=== PATIENT | male | born 1955 | race Hispanic/Latino ===

== ENCOUNTER 2020-01-02 07:38 | Outpatient (CLI) | payer BC ==
--- NOTE | 2020-01-02 09:33 | MRI ---
MRI LEFT KNEE PERFORMED WITHOUT CONTRAST ENHANCEMENT: History: Knee injury Comparison: Plain film examination done at Dr. hernandez, 12-26-2019. FINDINGS: The anterior cruciate ligament is intact. There is increased signal change associated with the femora l attachment of the PCL compatible with a partial interstitial tear. There is a small free edge tear involving the posterior horn of the medial meniscus. There is a compl ex tear involving the posterior horn of the lateral meniscus. The tear extends from just adjacent to the meniscal root into the midportion of the body of the meniscus. Free edge is truncated and irregul ar. Medial as well as lateral collateral ligaments and iliotibial band regions are unremarkable. There is moderate articular cartilage loss of the lateral facet of the patella. Medial and lateral pa tellar retinaculum and quadriceps and patellar tendons are normal. There are large osteochondral bodies and a Harley cyst. This is confirmed on plain film which shows os sification. IMPRESSION: 1. Midgrade partial tear of the proximal femoral attachment of the PCL. ACL is intact. 2. Small free edge tear involving the posterior horn of the medial meniscus. 3. Complex tear involving the posterior horn of the lateral meniscus. 4. Marked arthritic changes of the patellofemoral joint space with marked chondromalacia change in th e lateral facet. There are large osteochondral bodies within a Harley's cyst incidentally noted. POS: BRENDA
== END 2020-01-02 07:39 | disposition home or self-care (01) ==
LOC: BICMRI 07:38
PROVIDERS: ATTEND Orthopaedic Surgery
DX: M25.562 Pain in left knee (principal); M17.0 Bilateral primary osteoarthritis of knee; S83.522A Sprain of posterior cruciate ligament of left knee, initial encounter; S83.242A Other tear of medial meniscus, current injury, left knee, initial encounter; S83.272A Complex tear of lateral meniscus, current injury, left knee, initial encounter; M71.22 Synovial cyst of popliteal space [Baker], left knee

== ENCOUNTER 2020-03-06 06:16 | Outpatient (CLI) | payer BC, OTHER ==
[2020-03-06 17:58] LABS: #Eosinphils 0.2 thou/uL (0.0-0.7); #Lymphocytes 3.7 thou/uL (1.20-3.40); #Monocytes 0.6 thou/uL (0.11-0.59); #Neutrophils 5.4 thou/uL (1.40-6.50); %Basophils 0.5 % (0.0-1.0); %Eosinophils 1.9 % (0.0-10.0); %Lymphocytes 37.4 % (21.0-51.0); %Neutrophils 54.2 % (42.0-75.0); Hemoglobin 16.2 g/dL (14.0-18.0); Mean Corpuscular HGB CONC 33.1 g/dL (32.0-36.0); Mean Corpuscular Hemoglobin 29.2 pg (27.0-31.0); Mean Corpuscular Volume 88.4 fL (78.0-98.0); Mean Platelet Volume 9.3 fL (7.4-10.4); Platelet Count 213 thou/uL (130-400); RBC Distribution Width 13.7 % (11.5-14.5); Red Blood Cell (RBC) Count 5.53 mill/uL (4.70-6.10); White Blood Cell (WBC) Count 9.9 thou/uL (4.8-10.8)
[2020-03-06 18:02] LABS: Bacteria/HPF None Seen HPF (None Seen); Bilirubin Negative (Negative); Blood, Urine Negative (Negative); Clarity Clear (Clear); Glucose, Urine (Dipstick) Greater than 1000 mg/dL (Negative); Ketone, Urine Negative (Negative); Leukocyte Negative Leu/uL (Negative); Nitrite Negative (Negative); Protein, Urine (Dipstick) Negative (Neg-Trace); RBC/HPF 0-3 HPF (0-3); Specific Gravity, Urine 1.032 (1.002-1.036); Squamous Epithelial None Seen HPF (0-3); Urobilinogen Normal mg/dL (Less than 2); WBC/HPF 0-3 HPF (0-3); pH, Urine 6.5 (5.0-9.0)
[2020-03-06 18:06] LABS: Anion Gap 12 mmol/L (10-20); BUN (Urea Nitrogen) 24 mg/dL (8.4-25.7); Calc. Creatinine Clearance 0 mL/min (70-130); Calcium 9.8 mg/dL (7.8-10.44); Carbon Dioxide 26 mmol/L (23-31); Chloride 103 mmol/L (98-107); Estimated GFR-MDRD 77; Glucose 251 mg/dL (80-115); INR-International Normal Ratio 1.2; Potassium 4.4 mmol/L (3.5-5.1); Prothrombin Time 14.8 sec (12.0-14.7); Sodium 137 mmol/L (136-145)
[2020-03-07 12:47] LABS: SARS-CoV-2 MS2 Positive; SARS-CoV-2 N Gene Negative; SARS-CoV-2 S Gene Negative; SARS-CoV-2 orf1ab Negative
== END 2020-03-06 06:17 | disposition home or self-care (01) ==
LOC: LABBT 06:16
PROVIDERS: ATTEND Orthopaedic Surgery
DX: Z01.818 Encounter for other preprocedural examination (principal); Z11.59 Encounter for screening for other viral diseases; M17.11 Unilateral primary osteoarthritis, right knee
CPT/HCPCS: 80048; 81001; 85025; 85610; 87081; 87635; 93005; 93010; U0003

== ENCOUNTER 2020-03-06 15:30 | Inpatient (IN) | payer MEDICARE, BC ==
[2020-03-04 11:18] VITALS: BMI 32.4
[2020-03-10] MEDS ORDERED: Sodium Chloride 0.9% 100 ML ONE (07:16)
[2020-03-10] MEDS ORDERED: Vancomycin 1.5 GRAM/300 ML BAG ONE (07:16)
[2020-03-10] MEDS ORDERED: Tranexamic Acid 1,000 MG/10 ML VIAL ONE ×2 (07:16→12:31)
[2020-03-10] MEDS ORDERED: Midazolam HCl 2 mg/2 ml Vial ONE (08:16)
[2020-03-10] MEDS ORDERED: Fentanyl 100 MCG/2 ML VIAL ONE ×4 (08:16→12:44)
[2020-03-10] MEDS ORDERED: Bupivacaine PF 0.5% 30 ML VIAL ONE (09:33)
[2020-03-10] MEDS ORDERED: Ropivacaine HCl/PF 250 ML in Premix Bag 1 BAG NERVE BLCK SCH (10:07)
[2020-03-10] MEDS ORDERED: Acetaminophen 325 MG TAB PO PRN ×2 (10:07→11:37)
[2020-03-10] MEDS ORDERED: Ondansetron PF 4 MG/2 ML Vial IVP PRN ×2 (10:07→11:37)
[2020-03-10] MEDS ORDERED: traMADol HCl 50 MG TAB PO PRN ×2 (10:07)
[2020-03-10] MEDS ORDERED: Zolpidem Tartrate 5 MG TAB PO PRN ×2 (10:07→11:37)
[2020-03-10] MEDS ORDERED: HYDROcodone/Acetaminophen 10/325 mg Tablet PO PRN (10:07)
[2020-03-10] MEDS ORDERED: Promethazine HCl 25 MG/ML VIAL IM PRN ×3 (10:07→11:46)
[2020-03-10] MEDS ORDERED: Fentanyl 100 MCG/2 ML VIAL IV PRN (10:08)
[2020-03-10] MEDS ORDERED: PHENYLEPHRINE-NS 100 MCG/ML 10 ML SYRINGE ONE ×2 (11:17→11:22)
[2020-03-10] MEDS ORDERED: Ondansetron PF 4 MG/2 ML Vial ONE (11:22)
[2020-03-10] MEDS ORDERED: Lidocaine 1% PF 5 ML VIAL ONE (11:22)
[2020-03-10] MEDS ORDERED: Ropivacaine 0.2% HCl/PF (40 MG/20 ML VIAL) ONE (11:22)
[2020-03-10] MEDS ORDERED: PROPOFOL 200 MG/20 ML VIAL ONE (11:22)
[2020-03-10] MEDS ORDERED: EPHEDRINE 25 MG/5 ML SYRINGE ONE (11:22)
[2020-03-10] MEDS ORDERED: Bupivacaine HCl 0.5%/Epinephrine 1:200,000/PF 30 ml Vial ONE (11:22)
[2020-03-10] MEDS ORDERED: Dexamethasone 20 MG/5 ML VIAL ONE (11:22)
[2020-03-10] MEDS ORDERED: diphenhydrAMINE 25 MG CAP PO PRN (11:37)
[2020-03-10] MEDS ORDERED: Tranexamic Acid 1,000 MG in Sodium Chloride 0.9% 100 ML IVPB SCH (11:45)
[2020-03-10] MEDS ORDERED: Morphine 2 MG/ML VIAL SLOW IVP PRN (11:46)
[2020-03-10] MEDS ORDERED: PACU-Morphine 4MG/ML VIAL SLOW IVP PRN (11:46)
[2020-03-10] MEDS ORDERED: Promethazine HCl 25 MG/ML VIAL SLOW IVP PRN (11:46)
[2020-03-10] MEDS ORDERED: Meperidine HCl/PF 25 MG/ML VIAL SLOW IVP PRN (11:46)
[2020-03-10] MEDS ORDERED: HYDROmorphone 2 MG/ML VIAL SLOW IVP PRN (11:46)
[2020-03-10] MEDS ORDERED: Ondansetron HCl/PF 4 MG/2 ML Vial IVP PRN (11:46)
[2020-03-10] MEDS ORDERED: Ketorolac Tromethamine 30 MG/ML VIAL ONE (12:18)
--- NOTE | 2020-03-10 13:12 | OP ---
DATE OF PROCEDURE: 03/10/2020 FISH PROTECTOR: Nayan Hernández PA-C PREOPERATIVE DIAGNOSIS: Right knee osteoarthrosis. POSTOPERATIVE DIAGNOSIS: Right knee osteoarthrosis. PROCEDURE PERFORMED: Right total knee replacement using [employer] pinless navigation. ESTIMATED BLOOD LOSS: Minimal. COMPLICATIONS: None. ANESTHESIA: The patient had a general anesthetic. He also had a preoperative block. IMPLANTS: To the right knee, we used a size 4 cruciate-retaining right femur, size 4 primary tibial baseplate, a 4 x 9 mm CS X3 tibial poly, and an asymmetric 29 x 9 X3 patella. DISPOSITION: He went to recovery room in stable condition. INDICATIONS: This is a 65-year-old male, who has failed all nonoperative treatment for severe right knee osteoarthritis and at this time wished to have his knee replaced. PROCEDURE IN DETAIL: After all appropriate consent forms were explained and signed, the patient was taken back to the operating room and at this time was given general anesthetic. Once the level of anesthesia was appropriate, a well-padded tourniquet was placed on the right leg, and the leg was then prepped and draped in standard surgical fashion. The limb was exsanguinated and tourniquet taken up to 300 mmHg. Midline incision was made with a 10 blade down through the skin and subcutaneous tissue. Bovie electrocautery was used to coagulate any brisk venous bleeding. A new blade was used to make a medial parapatellar arthrotomy. Small subperiosteal release was performed medially and excess fat pad was removed. The knee was flexed up to gain access to the femur. The femur was navigated and distal femoral resection was made. Epicondylar access was used to align our sizing jig and this was pinned in place. We sized our femur to be a size 4 cruciate-retaining right femur. 4:1 cutting block was applied and pinned. Anterior and posterior chamfer cuts were then made. We navigated out our proximal tibia and made our proximal tibial resection. Spreaders were used to remove any posterior osteophytes off the back of the femur as well as remaining meniscal tissue. A long alignment antelmo was then used to achieve correct rotation of our tibial baseplate and a size 4 primary tibial baseplate was chosen. This was pinned in place. We trialed the polyethylene and a 4 x 9 mm CS X3 tibial polyethylene gave us full extension and good stability throughout range of motion. Two towel clips and a saw were used to cut our patella. Three lug nuts were drilled and an asymmetric 29 x 9 X3 patella was trialed which sat nicely in the trochlear groove. We then drilled our femur and punched our tibia. All components were removed. The knee was thoroughly irrigated and dried. Cement was mixed into the cement gun on the back table. Components were then placed. The knee was held out in full extension until the cement had dried. All excess bone cement was removed. Multiple #2 Vicryl stitches as well as a Quill were used to close our extensor mechanism. 0 Quill followed by a running Monoderm was then used to close the skin. Surgicel glue was then used on the skin. Once this had dried, soft tissue dressing was applied to the limb, tourniquet was let down, and the toes pinked up nicely. The patient was then awakened and taken to the recovery room in stable condition. All counts were correct at the end of the case. The patient did receive preoperative IV antibiotics. The patient was injected with Marcaine for postoperative pain relief. The assistant womens volleyball coach surgeon played a vital role in all aspects of the total knee replacement, including the approach, the main portion of the procedure to include implanting the device as well as closure. Job ID: [id number]
[2020-03-10] MEDS: Sodium Chloride 0.9% 1,000 ML IV SCH ×2 (13:42→22:25)
[2020-03-10] MEDS ORDERED: Ketorolac Tromethamine 30 MG/ML VIAL IVP SCH (14:00)
[2020-03-10] MEDS: HYDROcodone/Acetaminophen 10/325 mg Tablet PO PRN ×3 (14:36→23:17)
[2020-03-10] MEDS ORDERED: CEFAZOLIN 2 GM in Premix Bag 1 BAG IVPB SCH (15:00)
--- NOTE | 2020-03-10 16:15 | PDOC.HHP ---
Hospitalist HPI - History of Present Illness Consult for [facility] History of Present Illness: 65 yom with HTN, DM2 and DJD underwent TKR earlier today. Pain controlled. On 45 units Lantus BID. No CP or SOB. Follows Dr Edwige Simmons. Hospitalist ROS - Review of Systems Respiratory: denies: cough, dry, shortness of breath, hemoptysis, SOB with excertion, pleuritic pain, sputum, wheezing, other Cardiovascular: denies: chest pain, palpitations, orthopnea, paroxysmal noc. dyspnea, edema, light headedness, other Gastrointestinal: denies: nausea, vomiting, abdominal pain, diarrhea, constipation, melena, hematochezia, other - Medication Medications: Active Medications Generic Name Dose Route Start Last Admin Trade Name Freq PRN Reason Stop Dose Admin Hydrocodone Bitart/Acetaminophen 2 tab 03/10/20 10:07 03/10/20 14:36 [place] 10/325 PO 2 tab Q4H PRN Administration PAIN (4-6) Sodium Chloride 1,000 mls @ 100 mls/hr 03/10/20 11:45 03/10/20 13:42 Normal Saline 0.9% IV 1,000 mls .Q10H KYLAH Administration Hospitalist History - Past Medical History Other Medical History: Medical History: Hypertension, Hyperlipidemia, Diabetes, Reflux, Arthritis. Surgical History: Knee Arthroscopy-Right 1973, knee surgery right 1991, colonoscopy with polyp resection, Dr. Jolly, repeat 5 years 10/2018. Family History: Father: 93 yrs. Mother: alive 92 yrs, diagnosed with Diabetes. Siblings: alive, Diabetes. Daughter(s): alive. Paternal Grand Father: . Paternal Grand Mother: . Maternal Grand Father: . Maternal Grand Mother: . Social History: Non-Smoker, Alcohol occassionally. 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 . DPOA - spouse Medications: Fish Oil 1000 mg Capsule 1 capsule Orally once a day, Taking Calcet (Calcium-Vitamin D) , Taking Baby Aspirin 81 mg Tablet 1 po daily, Taking Claritin(Loratadine) 10 MG Tablet 1 tablet Orally Once a day, Taking Magnesium unknown strength Capsule 1 capsule with a meal Orally twice a day, Taking Sildenafil Citrate 100 MG Tablet 1 tablet as needed Orally prn, Taking Lisinopril 20 MG Tablet 1 tablet Orally Once a day, Taking Metformin HCl 1000 MG Tablet 1 tablet with a meal Orally twice a day, Taking Glimepiride 4 MG Tablet 1 tablet Orally twice a day, Taking Simvastatin 10 MG Tablet 1 tablet in the evening Orally Once a day, Taking Januvia(SITagliptin Phosphate) 100 MG Tablet 1 tablet Orally Once a day, Taking Omeprazole 40 mg Capsule Delayed Release 1 capsule Orally Once a day, Taking ONE TOUCH ULTRABLUE TEST STRIPS TEST STRIPPS STRIPS 0NE TWICE DAILY, Taking Invokana(Canagliflozin) 300 mg Tablet TAKE 1 TABLET BY MOUTH DAILY. , Taking Lantus SoloStar(Insulin Glargine) 100 UNIT/ML Solution Pen-injector 50 units Subcutaneous twice a day, Allergies: N.K.D.A. - Exam General Appearance: NAD Neck: supple, no JVD Heart: RRR, no gallops Respiratory: no wheezes, no ronchi Gastrointestinal: non-tender, normal bowel sounds Extremities: no cyanosis, no clubbing Skin: normal turgor Psychiatric: normal affect, A&O x 3 Hospitalist Results - Labs Additional comment: Laboratory Tests 03/06/20 03/06/20 16:01 16:01 WBC 9.9 Hgb 16.2 Plt Count 213 BUN 24 Creatinine 0.98 - EKG Interpretation EKG: BRANDAN MCDANIEL (Reviewed by me) - Radiology Interpretation Other Status: image reviewed by me Additional Comment: Recent LE MRI - DJD Hospitalist H&P A/P - Plan Plan: Hypertension Hyperlipidemia DM2 GERD DJD Obesity BMI 32.4 CKD 2 RBBB PLAN: Start Lantus at 30 units BID - titrate as tolerated Moderate sliding scale Reduce Glimepiride to 4 mg daily Cont other diabetic meds Start Lisinopril - hold for SBP <120 Cont other meds as above Will follow. Thank you for this consultation
[2020-03-10] MEDS ORDERED: Dextrose 5% in Water 1,000 ML IV PRN (16:29)
[2020-03-10] MEDS ORDERED: Dextrose 50% Abboject 50 ML SYRINGE SLOW IVP PRN (16:29)
[2020-03-10] MEDS ORDERED: hydrALAZINE 20 MG/ML VIAL SLOW IVP PRN (16:31)
[2020-03-10] MEDS: metFORMIN 500 MG TAB PO SCH (17:42)
[2020-03-10] MEDS: CEFAZOLIN 2 GM in Premix Bag 1 BAG IVPB SCH (17:42)
[2020-03-10] MEDS ORDERED: Polyethylene Glycol 3350 17 GM Packet PO PRN (17:43)
[2020-03-10] MEDS: Insulin Regular 300 UNITS/3 ML VIAL SC PRN ×2 (18:04→20:50)
[2020-03-10] MEDS ORDERED: Vancomycin 1.5 GRAM/300 ML BAG 1.5 GM in Premix Bag 1 BAG IVPB SCH (19:00)
[2020-03-10] MEDS ORDERED: Vancomycin HCl 1.5 GM in Sodium Chloride 0.9% 250 ML 300 ML IVPB SCH (19:00)
[2020-03-10] MEDS: Ferrous Gluconate 324 MG TAB PO SCH (20:43)
[2020-03-10] MEDS: Aspirin 81 mg Enteric Coated Tablet PO SCH (20:43)
[2020-03-10] MEDS: Ketorolac Tromethamine 30 MG/ML VIAL IVP SCH (20:43)
[2020-03-10] MEDS: Senokot S 8.6-50 MG TAB PO SCH (20:44)
[2020-03-10] MEDS: Simvastatin 10 MG TAB PO SCH (20:44)
[2020-03-10] MEDS: Insulin Glargine 30 UNITS in Pre-Filled Syringe SC SCH (20:49)
[2020-03-10] MEDS ORDERED: Glimepiride 4 MG TAB PO SCH (21:00)
[2020-03-10] MEDS ORDERED: Insulin Glargine 45 UNITS in Pre-Filled Syringe 1 EACH SC SCH (21:00)
[2020-03-10] MEDS ORDERED: Non-Formulary Item 1 EACH (Insulin Glargine,Hum.Rec.Anlog [Lantus Solostar] 45 UNIT) SQ SCH (21:00)
[2020-03-10] MEDS ORDERED: metFORMIN 500 MG TAB PO SCH (21:00)
[2020-03-11] MEDS: CEFAZOLIN 2 GM in Premix Bag 1 BAG IVPB SCH (02:00)
[2020-03-11] MEDS: Ketorolac Tromethamine 30 MG/ML VIAL IVP SCH ×3 (03:06→20:37)
[2020-03-11 05:53] LABS: Hemoglobin 13.7 g/dL (14.0-18.0); Mean Corpuscular HGB CONC 33.4 g/dL (32.0-36.0); Mean Corpuscular Hemoglobin 29.9 pg (27.0-31.0); Mean Corpuscular Volume 89.6 fL (78.0-98.0); Mean Platelet Volume 8.6 fL (7.4-10.4); Platelet Count 188 thou/uL (130-400); RBC Distribution Width 13.6 % (11.5-14.5); Red Blood Cell (RBC) Count 4.56 mill/uL (4.70-6.10); White Blood Cell (WBC) Count 15.9 thou/uL (4.8-10.8)
[2020-03-11] MEDS: Glimepiride 4 MG TAB PO SCH (06:34)
[2020-03-11] MEDS: Sodium Chloride 0.9% 1,000 ML IV SCH ×2 (06:34→17:58)
[2020-03-11] MEDS: Alogliptin 25 MG TAB PO SCH (08:26)
[2020-03-11] MEDS: metFORMIN 500 MG TAB PO SCH ×2 (08:26→17:59)
--- NOTE | 2020-03-11 08:26 | PRG ---
DATE OF SERVICE: 03/11/2020 SUBJECTIVE: Andre is a 65-year-old male postoperative day 1 from right total knee arthroplasty. He is doing relatively well. He has no complaints and he was able to ambulate greater than 20 feet yesterday evening. OBJECTIVE: VITAL SIGNS: Temperature 97.7, pulse 71, respiratory rate 18 unlabored, and blood pressure is 112/71. GENERAL: He is alert, oriented, responsive, appropriate with examiner. EXTREMITIES: Incision is clean. No strikethrough. No malrotation or shortening. He is neurovascularly intact in the right lower extremity. LABORATORY DATA: Hemoglobin and hematocrit, 13.7 and 40.9. IMPRESSION: A 65-year-old male, postoperative day 1 right total knee arthroplasty, doing well. PLAN: Continue current care. Probable discharge home tomorrow. Job ID: [id number]
[2020-03-11] MEDS: Empagliflozin 25 MG TAB PO SCH (08:27)
[2020-03-11] MEDS: Aspirin 81 mg Enteric Coated Tablet PO SCH ×2 (08:27→20:38)
[2020-03-11] MEDS: Multivitamin W/ Minerals 1 TAB PO SCH (08:28)
[2020-03-11] MEDS: Magnesium Oxide 400 MG TAB PO SCH (08:28)
[2020-03-11] MEDS: Loratadine 10 MG TAB PO SCH (08:28)
[2020-03-11] MEDS: Ferrous Gluconate 324 MG TAB PO SCH ×2 (08:28→20:38)
[2020-03-11] MEDS: Lisinopril 20 MG TAB PO SCH (08:43)
[2020-03-11] MEDS: Senokot S 8.6-50 MG TAB PO SCH ×2 (08:43→20:38)
[2020-03-11] MEDS: HYDROcodone/Acetaminophen 10/325 mg Tablet PO PRN ×3 (08:46→22:02)
[2020-03-11] MEDS: Insulin Glargine 30 UNITS in Pre-Filled Syringe SC SCH ×2 (08:47→20:44)
[2020-03-11] MEDS ORDERED: Lisinopril 20 MG TAB PO SCH (09:00)
[2020-03-11] MEDS ORDERED: Aspirin 81 mg Enteric Coated Tablet PO SCH (09:00)
--- NOTE | 2020-03-11 11:58 | PDOC.HOSPP ---
- Subjective Encounter Date: 03/11/20 Encounter Time: 09:30 Subjective: Mr. Mariscal is a 65 y/o M who presented for a total knee replacement and required management of his type 2 diabetes. Patient states that he is recovering well from surgery and was able to sleep last night. Pain level is maintained below a 5 out of 10. Patient has been using his incentive spirometry. Patient appeared his stated age, well-nourished, and was seated upright in adjacent hospital chair. He was a reliable historian throughout interview. - Objective Vital Signs & Weight: Vital Signs (12 hours) Temp Pulse Resp BP BP Pulse Ox 03/11/20 08:43 137/77 03/11/20 07:20 98.2 F 76 20 137/77 99 03/11/20 03:21 97.7 F 71 18 112/71 97 Weight Weight 226 lb I&O: 03/10/20 03/11/20 03/12/20 06:59 06:59 06:59 Intake Total 3240 230 Output Total 2550 Balance 690 230 Result Diagrams: 03/11/20 05:25 Additional Labs: Accuchecks 03/11/20 03/10/20 03/10/20 05:29 20:32 17:53 POC Glucose 140 H 298 H 393 H 03/10/20 03/10/20 13:32 07:52 POC Glucose 144 H 147 H Hospitalist ROS - Review of Systems Constitutional: denies: fever, chills, sweats, weakness, malaise, other Respiratory: denies: cough, dry, shortness of breath, hemoptysis, SOB with excertion, pleuritic pain, sputum, wheezing, other Cardiovascular: denies: chest pain, palpitations, orthopnea, paroxysmal noc. dyspnea, edema, light headedness, other Gastrointestinal: denies: nausea, vomiting, abdominal pain, diarrhea, constipation, melena, hematochezia, other Genitourinary: denies: dysuria, frequency, incontinence, hematuria, retention, other - Medication Medications: Active Medications Generic Name Dose Route Start Last Admin Trade Name Freq PRN Reason Stop Dose Admin Hydrocodone Bitart/Acetaminophen 2 tab 03/10/20 10:07 03/11/20 08:46 [place] 10/325 PO 2 tab Q4H PRN Administration PAIN (4-6) Alogliptin Benzoate 25 mg 03/11/20 09:00 03/11/20 08:26 Alogliptin PO 25 mg DAILY KYLAH Administration Aspirin 81 mg 03/10/20 21:00 03/11/20 08:27 Ecotrin PO 81 mg BID KYLAH Administration Ferrous Gluconate 324 mg 03/10/20 21:00 03/11/20 08:28 Fergon PO 324 mg BID KYLAH Administration Glimepiride 4 mg 03/11/20 07:30 03/11/20 06:34 Amaryl PO 4 mg DAILY-AC KYLAH Administration Sodium Chloride 1,000 mls @ 100 mls/hr 03/10/20 11:45 03/11/20 06:34 Normal Saline 0.9% IV Not Given .Q10H KYLAH Insulin Glargine 30 units/ 0.3 mls @ 0 mls/hr 03/10/20 21:00 03/10/20 20:49 Miscellaneous Medication SC 0.3 mls HS KYLAH Administration Insulin Glargine 30 units/ 0.3 mls @ 0 mls/hr 03/11/20 09:00 03/11/20 08:47 Miscellaneous Medication SC 0.3 mls QAM KYLAH Administration Insulin Human Regular 0 units 03/10/20 16:29 03/10/20 18:04 Humulin R SC 10 unit .MODERATE SLIDING SC PRN Administration Moderate Correctional Scale Insulin Human Regular 0 units 03/10/20 16:29 03/10/20 20:50 Humulin R SC 3 unit .BEDTIME SLIDING SC PRN Administration Bedtime Correctional Scale Iron/Minerals/Multivitamins 1 tab 03/11/20 09:00 03/11/20 08:28 Theragran M PO 1 tab DAILY KYLAH Administration Ketorolac Tromethamine 15 mg 03/10/20 20:00 03/11/20 03:06 Toradol IVP 03/15/20 20:01 15 mg 0400,1200,2000 KYLAH Administration Lisinopril 20 mg 03/11/20 09:00 03/11/20 08:43 Zestril PO 20 mg DAILY KYLAH Administration Loratadine 10 mg 03/11/20 09:00 03/11/20 08:28 Claritin PO 10 mg DAILY KYLAH Administration Magnesium Oxide 200 mg 03/11/20 09:00 03/11/20 08:28 Magnesium Oxide PO 200 mg DAILY KYLAH Administration Metformin HCl 1,000 mg 03/10/20 17:00 03/11/20 08:26 Glucophage PO 1,000 mg BID-WM KYLAH Administration Miscellaneous Medication 25 mg 03/11/20 09:00 03/11/20 08:27 Jardiance PO 25 mg DAILY KYLAH Administration Pantoprazole Sodium 40 mg 03/11/20 09:00 03/11/20 08:28 Protonix PO 40 mg DAILY KYLAH Administration Senna/Docusate Sodium 2 tab 03/10/20 21:00 03/11/20 08:43 Senokot S PO Not Given BID KYLAH Simvastatin 10 mg 03/10/20 21:00 03/10/20 20:44 Zocor PO 10 mg HS KYLAH Administration - Exam General Appearance: awake alert Neck: supple, symmetric, no JVD, no carotid bruit Heart: RRR, no murmur, no gallops, no rubs, normal peripheral pulses Respiratory: CTAB, no wheezes, no rales, no ronchi Gastrointestinal: soft, non-tender, normal bowel sounds, no bruit Extremities: no cyanosis, no clubbing, no edema Skin: normal turgor, no lesions, no rashes Hosp A/P - Plan incentive spirometry Hypertension Hyperlipidemia DM2 GERD DJD Obesity BMI 32.4 CKD 2 RBBB PLAN: Cont Lisinopril - hold for SBP <120 Cont: hydralazine PRN Cont: Simvastatin Cont Lantus 30 units BID Cont moderate sliding scale Cont Glimepiride 4 mg daily Cont: Pantoprazole Sodium Cont: Magnesium Oxide Cont: Ketorolac Tromethamine Cont: ambulation with PT Cont: Incentive spirometry
[2020-03-11] MEDS: Insulin Regular 300 UNITS/3 ML VIAL SC PRN ×2 (13:40→20:44)
[2020-03-11] MEDS ORDERED: Atorvastatin Calcium 40 MG TAB ONE (13:45)
[2020-03-11] MEDS: Simvastatin 10 MG TAB PO SCH (20:44)
[2020-03-12] MEDS: HYDROcodone/Acetaminophen 10/325 mg Tablet PO PRN ×3 (02:00→10:32)
[2020-03-12] MEDS: Sodium Chloride 0.9% 1,000 ML IV SCH ×2 (03:08→08:40)
[2020-03-12] MEDS: Ketorolac Tromethamine 30 MG/ML VIAL IVP SCH (03:59)
[2020-03-12 05:33] LABS: Hemoglobin 13.2 g/dL (14.0-18.0); Mean Corpuscular HGB CONC 33.1 g/dL (32.0-36.0); Mean Corpuscular Hemoglobin 29.8 pg (27.0-31.0); Mean Corpuscular Volume 90.1 fL (78.0-98.0); Mean Platelet Volume 8.4 fL (7.4-10.4); Platelet Count 173 thou/uL (130-400); RBC Distribution Width 13.6 % (11.5-14.5); Red Blood Cell (RBC) Count 4.44 mill/uL (4.70-6.10); White Blood Cell (WBC) Count 11.2 thou/uL (4.8-10.8)
[2020-03-12] MEDS: Insulin Regular 300 UNITS/3 ML VIAL SC PRN (06:17)
[2020-03-12] MEDS: Glimepiride 4 MG TAB PO SCH (06:17)
[2020-03-12] MEDS: Insulin Glargine 30 UNITS in Pre-Filled Syringe SC SCH (08:27)
[2020-03-12] MEDS: Aspirin 81 mg Enteric Coated Tablet PO SCH (08:28)
[2020-03-12] MEDS: Senokot S 8.6-50 MG TAB PO SCH (08:28)
[2020-03-12] MEDS: Loratadine 10 MG TAB PO SCH (08:28)
[2020-03-12] MEDS: metFORMIN 500 MG TAB PO SCH (08:28)
[2020-03-12] MEDS: Magnesium Oxide 400 MG TAB PO SCH (08:28)
[2020-03-12] MEDS: Multivitamin W/ Minerals 1 TAB PO SCH (08:28)
[2020-03-12] MEDS: Ferrous Gluconate 324 MG TAB PO SCH (08:28)
[2020-03-12] MEDS: Alogliptin 25 MG TAB PO SCH (08:29)
[2020-03-12] MEDS: Empagliflozin 25 MG TAB PO SCH (08:29)
[2020-03-12] MEDS: Lisinopril 20 MG TAB PO SCH (08:34)
--- NOTE | 2020-03-12 10:15 | PDOC.HOSPP ---
- Subjective Encounter Date: 03/12/20 - Objective Vital Signs & Weight: Vital Signs (12 hours) Temp Pulse Resp BP BP Pulse Ox 03/12/20 08:34 114/62 03/12/20 07:29 98.3 F 71 16 111/66 95 03/12/20 03:49 98.8 F 83 18 119/66 95 03/11/20 23:53 99.2 F 81 18 118/71 98 Weight Admit Weight 226 lb Weight 226 lb I&O: 03/11/20 03/12/20 03/13/20 06:59 06:59 06:59 Intake Total 3240 1780 Output Total 2550 Balance 690 1780 Result Diagrams: 03/12/20 05:10 Additional Labs: Accuchecks 03/12/20 03/11/20 03/11/20 05:24 20:22 17:42 POC Glucose 159 H 209 H 142 H 03/11/20 12:00 POC Glucose 191 H Hospitalist ROS - Medication Medications: Active Medications Generic Name Dose Route Start Last Admin Trade Name Freq PRN Reason Stop Dose Admin Hydrocodone Bitart/Acetaminophen 2 tab 03/10/20 10:07 03/12/20 06:18 [place] 10/325 PO 2 tab Q4H PRN Administration PAIN (4-6) Alogliptin Benzoate 25 mg 03/11/20 09:00 03/12/20 08:29 Alogliptin PO 25 mg DAILY KYLAH Administration Aspirin 81 mg 03/10/20 21:00 03/12/20 08:28 Ecotrin PO 81 mg BID KYLAH Administration Ferrous Gluconate 324 mg 03/10/20 21:00 03/12/20 08:28 Fergon PO 324 mg BID KYLAH Administration Glimepiride 4 mg 03/11/20 07:30 03/12/20 06:17 Amaryl PO 4 mg DAILY-AC KYLAH Administration Ropivacaine 250 ml/ Device 250 mls @ 10 mls/hr 03/10/20 10:07 03/11/20 13:31 NERVE BLCK 03/13/20 10:06 250 mls INF KYLAH Administration As Directed Sodium Chloride 1,000 mls @ 100 mls/hr 03/10/20 11:45 03/12/20 08:40 Normal Saline 0.9% IV Not Given .Q10H KYLAH Insulin Glargine 30 units/ 0.3 mls @ 0 mls/hr 03/10/20 21:00 03/11/20 20:44 Miscellaneous Medication SC 0.3 mls HS KYLAH Administration Insulin Glargine 30 units/ 0.3 mls @ 0 mls/hr 03/11/20 09:00 03/12/20 08:27 Miscellaneous Medication SC 0.3 mls QAM KYLAH Administration Insulin Human Regular 0 units 03/10/20 16:29 03/12/20 06:17 Humulin R SC 2 unit .MODERATE SLIDING SC PRN Administration Moderate Correctional Scale Insulin Human Regular 0 units 03/10/20 16:29 03/11/20 20:44 Humulin R SC 2 unit .BEDTIME SLIDING SC PRN Administration Bedtime Correctional Scale Iron/Minerals/Multivitamins 1 tab 03/11/20 09:00 03/12/20 08:28 Theragran M PO 1 tab DAILY KYLAH Administration Lisinopril 20 mg 03/11/20 09:00 03/12/20 08:34 Zestril PO Not Given DAILY KYLAH Loratadine 10 mg 03/11/20 09:00 03/12/20 08:28 Claritin PO 10 mg DAILY KYLAH Administration Magnesium Oxide 200 mg 03/11/20 09:00 03/12/20 08:28 Magnesium Oxide PO 200 mg DAILY KYLAH Administration Metformin HCl 1,000 mg 03/10/20 17:00 03/12/20 08:28 Glucophage PO 1,000 mg BID-WM KYLAH Administration Miscellaneous Medication 25 mg 03/11/20 09:00 03/12/20 08:29 Jardiance PO 25 mg DAILY KYLAH Administration Pantoprazole Sodium 40 mg 03/11/20 09:00 03/12/20 08:28 Protonix PO 40 mg DAILY KYLAH Administration Senna/Docusate Sodium 2 tab 03/10/20 21:00 03/12/20 08:28 Senokot S PO 2 tab BID KYLAH Administration Simvastatin 10 mg 03/10/20 21:00 03/11/20 20:44 Zocor PO 10 mg HS KYLAH Administration Hosp A/P - Plan Hypertension Hyperlipidemia DM2 GERD DJD Obesity BMI 32.4 CKD 2 RBBB PLAN: Cont Lisinopril - hold for SBP <120 Cont: hydralazine PRN Cont: Simvastatin Cont Lantus 30 units BID Cont moderate sliding scale Cont Glimepiride 4 mg daily Cont: Pantoprazole Sodium Cont: Magnesium Oxide Cont: Ketorolac Tromethamine Cont: ambulation with PT Cont: Incentive spirometry
[2020-03-12 12:10] VITALS: BP 127/74; TEMP 98.2
== END 2020-03-12 14:00 | disposition home or self-care (01) | DRG 470 ==
LOC: SJJU 03-10 06:49 → SURG B 03-10 13:26 → EDSTATUS 03-10 15:30
PROVIDERS: ADMIT Orthopaedic Surgery; ATTEND Orthopaedic Surgery
PROC: 0SRC0J9 Replacement of Right Knee Joint with Synthetic Substitute, Cemented, Open Approach (ICD-10-PCS; principal; 2020-03-10)
DX: M17.11 Unilateral primary osteoarthritis, right knee (principal); E78.5 Hyperlipidemia, unspecified; E11.22 Type 2 diabetes mellitus with diabetic chronic kidney disease; I45.10 Unspecified right bundle-branch block; I12.9 Hypertensive chronic kidney disease with stage 1 through stage 4 chronic kidney disease, or unspecified chronic kidney disease; N18.2 Chronic kidney disease, stage 2 (mild); K21.9 Gastro-esophageal reflux disease without esophagitis; E66.9 Obesity, unspecified; Z79.899 Other long term (current) drug therapy; Z79.84 Long term (current) use of oral hypoglycemic drugs; Z68.32 Body mass index [BMI] 32.0-32.9, adult
CPT/HCPCS: 36415; 36416; 85027; C1713; C1776; J0670; J0690; J1100; J1815; J1885; J2250; J2405; J2704; J2795; J3010; J3370; J3490; S0020

== ENCOUNTER 2022-04-12 14:54 | Outpatient (CLI) | payer MEDICARE, BC | END 2022-04-12 14:55 | disposition home or self-care (01) | LOC: BICRAD 14:54 | PROVIDERS: ATTEND Family Medicine | DX: S93.402A Sprain of unspecified ligament of left ankle, initial encounter (principal) ==